=== PATIENT | female | born 1935 | race Caucasian/White ===

== ENCOUNTER 2020-01-16 07:49 | Outpatient (CLI) | payer MEDICARE, OTHER, SELFPAY ==
--- NOTE | 2020-01-16 07:58 | MM_ITS ---
WS: [id number] Bilateral screening digital mammogram, 01/16/2020 Clinical Data: SCREENING Comparison: 11/23/2018, 11/02/2017, 10/22/2016, 10/17/2015, 09/22/2014, 09/12/2013, 09/10/2012, 08/04/2011, 07/18, 07/09/2009, 05/08/2008, 05/03/2007, 04/27/2006. Findings: The breast parenchymal pattern shows fat replacement. No spiculated masses or clustered calcification s are seen. There are no secondary signs of carcinoma. MM/[id number] Impression: 1. Negative bilateral mammogram unchanged. 2. Recommend annual screening mammograms. BIRADS: 1-Negative FOLLOW UP: 1 Year Follow-up The CAD cashier checker was used.
== END 2020-01-16 07:50 | disposition home or self-care (01) ==
LOC: RADSHAW 07:53
PROVIDERS: PCP Nurse Practitioner Family; Visit Provider Nurse Practitioner Family
DX: Z12.31 Encounter for screening mammogram for malignant neoplasm of breast (principal)
CPT/HCPCS: 77067

== ENCOUNTER 2020-11-20 07:39 | Emergency (ER) | payer MEDICARE, OTHER, SELFPAY ==
[2020-11-20 08:20] VITALS: BP 170/111; PULSE 96; RESP 18; TEMP 36.6; O2SAT 96; BMI 33.6
[2020-11-20 08:32] VITALS: BP 194/124; PULSE 84; RESP 13; O2SAT 95
[2020-11-20 08:44] LABS: Basophils % 0.6 %; Eosinophils # 0.1 10^3/uL (0.0-0.8); Eosinophils % 1.7 %; Hematocrit 44.3 % (37.0-47.0); Hemoglobin 14.3 g/dL (11.5-15.3); Lymphocytes # 1.6 10^3/uL (0.8-4.8); Lymphocytes % 30.3 %; Mean Corpuscular HGB Conc 32.3 g/dL (30.0-36.0); Mean Corpuscular Hemoglobin 28.9 pg (28.0-34.0); Mean Corpuscular Volume 89.7 fL (81-99); Mean Platelet Volume 10.2 fL (7.4-10.4); Monocytes # 0.3 10^3/uL (0.2-0.9); Monocytes % 6.4 %; Neutrophils # 3.13 10^3/uL (1.8-7.7); Neutrophils % 60.8 %; Nucleated Red Blood Cells % 0 %; Platelet Count 262 10^3/cmm (130-400); Red Blood Count 4.94 10^6/uL (4.1-5.3); Red Cell Distribution Width 13.9 % (12.1-15.1); White Blood Count 5.2 10^3/uL (4.0-10.0)
--- NOTE | 2020-11-20 08:45 | ED_ITS ---
HPI - Epistaxis General: Chief complaint: Epistaxis Stated complaint: nose bleed Time Seen by Provider: 11/20/20 08:15 History of Present Illness: HPI Narrative: 85-year-old female presents emergency room complaint of epistaxis. Began this morning after she had gone out for a walk. She is on warfarin the last time she had her PTU checked was 3 weeks ago. She is also on multiple antihypertensives which she has not taken this morning due to the bloody nose. 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 MD complaint: epistaxis Location: bilateral nostril Onset (ago): hour(s) Duration: intermittent Context: warfarin use Associated symptoms: Reports no associated symptoms; Deny fever(s) or vomiting Treatment prior to arrival: nose pinching and head tilted back Review of Systems Const: Denies: fever(s), chills, body aches, change in appetite, fatigue or malaise ENMT: Denies: throat pain, ear or mastoid pain, nasal discharge or nasal congestion Card: Denies: chest pain, edema, dyspnea on exertion or orthopnea Resp: Denies: dyspnea, productive cough or non-productive cough GI: Denies: abdominal pain, nausea, vomiting, hematemesis, coffee ground emesis, diarrhea, constipation, bloating, hematochezia or melena : Denies: flank pain, difficulty voiding, dysuria, urinary frequency or urinary urgency Skin/Breast: Denies: rash or pruritus Physical Exam Const: COMMON NORMALS: no acute distress GENERAL APPEARANCE: cooperative and comfortable ORIENTATION/CONSCIOUSNESS: Yes awake, Yes oriented to person, Yes oriented to place and Yes oriented to time HENMT: COMMON NORMALS: normocephalic, atraumatic and hearing grossly normal bilaterally HEAD & SCALP: normocephalic and atraumatic Neck/C-Spine: COMMON NORMALS: no JVD Resp: COMMON NORMALS: normal respiratory effort, No retractions, No use of accessory muscles and clear to auscultation bilaterally AUSCULTATION: clear to auscultation bilaterally Cardio: COMMON NORMALS: no JVD, regular rate, regular rhythm and No murmurs present (Cardio) RATE: regular rate RHYTHM: regular rhythm GI: COMMON NORMALS: Soft to palpation and No hepatosplenomegaly present AUSCULTATION: Yes normoactive bowel sounds PALPATION: Yes Soft to palpation, No Tenderness to palpation present (GI), No Guarding due to palpation present (GI) and Yes No hepatosplenomegaly present Extremity: COMMON NORMALS: normal to inspection, capillary refill normal, no clubbing, cyanosis or edema, no calf tenderness and no pedal edema Neuro: SENSORIUM/ORIENTATION: Yes oriented to person, Yes oriented to place and Yes oriented to time Skin: COMMON NORMALS: no rashes or lesions noted GENERAL SKIN EXAM: no rashes or lesions noted Course Vital Signs: Vital signs: Vital Signs Temperature 97.9 F 11/20/20 08:20 Pulse Rate 75 11/20/20 10:35 Respiratory Rate 14 11/20/20 10:35 Blood Pressure 162/106 11/20/20 10:35 Pulse Oximetry 95 11/20/20 10:35 MDM - Epistaxis MDM Narrative: Medical decision making narrative: Patient had a nose clamp on when I came in the room. We prepared to place a Rhino Rocket however we will remove the nose clip she has longer actively bleeding. Monitor for time she continues to not be actively bleeding. We will discharge her home on Augmentin topical mupirocin place inside the naris. I have her follow-up with her primary care doctor in the next 3 days if any recurrence of epistaxis return to the emergency room. Lab Data: Labs: Lab Results 11/20/20 11/20/20 11/20/20 Range/Units 08:38 08:38 08:38 WBC 5.2 (4.0-10.0) 10^3/ uL RBC 4.94 (4.1-5.3) 10^6/u L Hgb 14.3 (11.5-15.3) g/dL Hct 44.3 (37.0-47.0) % MCV 89.7 (81-99) fL MCH 28.9 (28.0-34.0) pg MCHC 32.3 (30.0-36.0) g/dL RDW 13.9 (12.1-15.1) % Plt Count 262 (130-400) 10^3/c mm MPV 10.2 (7.4-10.4) fL Neut % (Auto) 60.8 % Lymph % (Auto) 30.3 % Osborne % (Auto) 6.4 % Eos % (Auto) 1.7 % Baso % (Auto) 0.6 % Neut # (Auto) 3.13 (1.8-7.7) 10^3/u L Lymph # (Auto) 1.6 (0.8-4.8) 10^3/u L Osborne # (Auto) 0.3 (0.2-0.9) 10^3/u L Eos # (Auto) 0.1 (0.0-0.8) 10^3/u L Baso # (Auto) 0.0 (0.0-0.1) 10^3/u L Nucleated RBC % (a uto) 0 % Nucleated RBCs # 0.0 /100WBC PT 22.00 H (12.1-14.9) SECO NDS INR 1.87 H (0.8-1.2) APTT 33.3 (23.9-36.7) SECO NDS Sodium 136 (136-145) mmol/L Potassium 3.5 (3.5-5.1) mmol/L Chloride 100 (98-107) mmol/L Carbon Dioxide 24 (22-29) mmol/L Anion Gap 15.5 (5-19) BUN 9 (8-23) mg/dL Creatinine 0.6 (0.5-0.9) mg/dL GFR Calculation Not Reportable Glucose 101 (65-115) mg/dL Calculated Osmolal ity 281 L (285-295) mOsm/k g Calcium 8.1 L (8.5-10.5) mg/dL Total Bilirubin 0.7 (0.15-1.2) mg/dL AST 18 (0-32) U/L ALT 14 (0-33) U/L Alkaline Phosphata se 61 (35-105) IU/L Total Protein 7.7 (6.6-8.7) g/dL Albumin 3.8 (3.5-5.2) g/dL Globulin 3.9 (1.3-4.6) g/dL Discharge Plan Discharge Patient Disposition: Home Clinical Impression: Epistaxis, Hypertension, On continuous oral anticoagulation, History of DVT of lower extremity Condition: Stable Prescriptions: New Augmentin 875-125 mg tablet 1 tab PO BID Qty: 10 RF: 0 No Action multivitamin Tablet 1 tab PO DAILY RF: 0 metoprolol succinate 200 mg tablet extended release 24 hr 200 mg PO DAILY RF: 0 Tylenol Extra Strength 500 mg Tablet 500 mg PO PRN RF: 0 warfarin 3 mg tablet 3 mg PO DAILY RF: 0 levothyroxine 88 mcg tablet 88 mcg PO QAM RF: 0 amlodipine-benazepril 5-20 mg capsule 1 cap PO DAILY RF: 0 omeprazole 20 mg capsule,delayed release(DR/EC) 20 mg PO DAILY PRN (Reason: Acid Reflux) RF: 0 warfarin 1 mg tablet 1 mg PO .ON MON,THU,FRI RF: 0 rosuvastatin 5 mg tablet 5 mg PO BEDTIME RF: 0 melatonin 10 mg Tablet 10 mg PO BEDTIME RF: 0 Discharge Orders: Discharge ED (Routine); Ordered 11/20/20 Ordered By: Winston Morales Referrals: Keren Torres FNP [Primary Care Provider] - Discharge Diet: Usual diet Discharge Activity: Resume usual activity Patient Instructions: Opioid Safety Activity Restrictions/Additional Instructions: Continue current medications. Follow-up with your doctor within the next week to recheck an INR. Return if you have recurrent bleeding Coding Level of Care Code ED Gang Hemstitching Machine Operator for Josué Pardo
--- NOTE | 2020-11-20 08:50 | PC.NURSE ---
Blood Pressure Patient's BP was elevated. This nurse adjusted BP cuff and advised the patient to relax her arm for a retake. The patient's BP improved slightly from 194/124 to 179/123 with this intervention.
[2020-11-20 09:00] LABS: INR 1.87 (0.8-1.2); Partial Thromboplastin Time 33.3 SECONDS (23.9-36.7)
[2020-11-20 09:06] LABS: Alanine Aminotransferase 14 U/L (0-33); Albumin Level 3.8 g/dL (3.5-5.2); Alkaline Phosphatase 61 IU/L (35-105); Anion Gap 15.5 (5-19); Aspartate Amino Transferase 18 U/L (0-32); Blood Urea Nitrogen 9 mg/dL (8-23); Calcium 8.1 mg/dL (8.5-10.5); Carbon Dioxide 24 mmol/L (22-29); Chloride 100 mmol/L (98-107); Globulin 3.9 g/dL (1.3-4.6); Glucose 101 mg/dL (65-115); Osmolality Calculated 281 mOsm/kg (285-295); Potassium 3.5 mmol/L (3.5-5.1); Sodium 136 mmol/L (136-145); Total Bilirubin 0.7 mg/dL (0.15-1.2); Total Protein 7.7 g/dL (6.6-8.7)
[2020-11-20] MEDS: saline nasal spray 44mL Btl 1 SPRAY NASAL (09:24)
[2020-11-20] MEDS: oxymetazoline 0.05% Nasal Spray 15 mL 2 SPRAY NOSTRIL-B (09:24)
[2020-11-20 09:25] VITALS: BP 159/98; PULSE 96; RESP 14; O2SAT 94
[2020-11-20] MEDS: metoprolol succinate ER (24 HR) 100 mg Tablet 200 MG PO (10:09)
[2020-11-20] MEDS: amlodipine 5 mg Tablet PO (10:10)
[2020-11-20] MEDS: lisinopril 20 mg Tablet PO (10:10)
[2020-11-20 10:11] VITALS: BP 169/93; PULSE 104; RESP 15; O2SAT 93
[2020-11-20 10:35] VITALS: BP 162/106; PULSE 75; RESP 14; O2SAT 95
== END 2020-11-20 10:42 | disposition home or self-care (01) ==
PROVIDERS: Emergency Provider Family Medicine; PCP Nurse Practitioner Family
DX: R04.0 Epistaxis (principal); I10 Essential (primary) hypertension; Z79.01 Long term (current) use of anticoagulants; Z86.718 Personal history of other venous thrombosis and embolism
CPT/HCPCS: 80053; 85025; 85610; 85730; 99284

== ENCOUNTER 2020-11-21 22:21 | Emergency (ER) | payer MEDICARE, OTHER, SELFPAY ==
[2020-11-21 22:30] VITALS: BP 157/107; PULSE 109; RESP 22; TEMP 36.6; O2SAT 93; BMI 33.6
--- NOTE | 2020-11-21 23:04 | ED_ITS ---
HPI - Epistaxis General: Chief complaint: Epistaxis Stated complaint: Nose Bleed Time Seen by Provider: 11/21/20 23:04 History of Present Illness: HPI Narrative: 85-year-old female comes in today with complaints of nosebleed. Patient reports a large clot came out when she arrived to the ER. Bleeding since then has decreased. Patient had followed up with primary care from a nosebleed 2 days ago. Patient is alert and oriented. Patient appears well. Patient appears in no acute distress. Review of Systems General: Reports: 10 or more systems reviewed and unremarkable except in HPI and below ENMT: Reports: epistaxis Physical Exam Const: COMMON NORMALS: no acute distress and patient oriented x3 GENERAL APPEARANCE: cooperative HENMT: COMMON NORMALS: normocephalic HEAD & SCALP: normal to inspection and normocephalic NOSE: Epistaxis present on the right source not visualized MOUTH: Normal oral and palatal mucosa present THROAT: postnasal drainage (bloody drainage, no clot) Eye: GENERAL EYE: appearance normal, both eyes and all related structures Neck/C-Spine: COMMON NORMALS: full ROM Lymph: LYMPHATIC: no lymphadenopathy noted Chest: COMMONS NORMALS: normal inspection of the chest Resp: COMMON NORMALS: normal respiratory effort EFFORT & INSPECTION: Yes able to speak in complete sentences Cardio: COMMON NORMALS: regular rate and regular rhythm RATE: regular rate RHYTHM: regular rhythm GI: COMMON NORMALS: non-tender Back/Pelvis: COMMON NORMALS: thoracic and lumbar spine normal to inspection Extremity: COMMON NORMALS: normal to inspection Neuro: COMMON NORMALS: patient oriented x3 and moves all extremities Psych: COMMON NORMALS: mental status grossly normal and cooperative Skin: COMMON NORMALS: no rashes or lesions noted GENERAL SKIN EXAM: no rashes or lesions noted Procedures Epistaxis Control Nostril: right Nose Prepped With: oxymetazoline Direct Inspection: unable to visualize Clots Removed by: manually Cautery Used: none Device Inserted: nasal tampon (2x2 saturated pledget with lidocaine and epinephr ine) Patient Tolerated Procedure: well Course Vital Signs: Vital signs: Vital Signs Temperature 97.8 F 11/21/20 22:30 Pulse Rate 84 11/22/20 01:26 Respiratory Rate 16 11/22/20 01:26 Blood Pressure 147/90 11/22/20 01:26 Pulse Oximetry 92 11/22/20 01:26 MDM - Epistaxis MDM Narrative: Medical decision making narrative: Patient came in today with recurrent epistaxis. On exam patient is alert oriented and appears well. Respirations were even lungs were clear to auscultation. Skin was warm and dry. Nasal passage on the right side noted blood in the canal. Posterior pharynx had some bleeding. Differential diagnosis includes anemia, epistaxis, sinusitis. I was able to get control of the epistaxis with a lidocaine and epinephrine saturated pledget. Pledget was left in place with recommendations for removal in 2 days. Patient at this time is already on Augmentin due to previous exam and treatment for epistaxis. Case management referral will be placed for follow-up appointment with ENT. Patient should return to the ER in 2 days for nasal packing removal. Lab Data: Labs: Lab Results 11/21/20 11/21/20 11/21/20 Range/Units 22:55 22:55 22:55 WBC 5.3 (4.0-10.0) 10^3/ uL RBC 4.65 (4.1-5.3) 10^6/u L Hgb 13.5 (11.5-15.3) g/dL Hct 41.7 (37.0-47.0) % MCV 89.7 (81-99) fL MCH 29.0 (28.0-34.0) pg MCHC 32.4 (30.0-36.0) g/dL RDW 14.1 (12.1-15.1) % Plt Count 266 (130-400) 10^3/c mm MPV 10.2 (7.4-10.4) fL Neut % (Auto) 49.1 % Lymph % (Auto) 41.3 % Wright % (Auto) 6.3 % Eos % (Auto) 2.5 % Baso % (Auto) 0.6 % Neut # (Auto) 2.59 (1.8-7.7) 10^3/u L Lymph # (Auto) 2.2 (0.8-4.8) 10^3/u L Wright # (Auto) 0.3 (0.2-0.9) 10^3/u L Eos # (Auto) 0.1 (0.0-0.8) 10^3/u L Baso # (Auto) 0.0 (0.0-0.1) 10^3/u L Nucleated RBC % (a uto) 0 % Nucleated RBCs # 0.0 /100WBC PT 22.60 H (12.1-14.9) SECO NDS INR 1.95 H (0.8-1.2) Sodium 138 (136-145) mmol/L Potassium 3.5 (3.5-5.1) mmol/L Chloride 104 (98-107) mmol/L Carbon Dioxide 24 (22-29) mmol/L Anion Gap 13.5 (5-19) BUN 17 (8-23) mg/dL Creatinine 0.5 (0.5-0.9) mg/dL GFR Calculation Not Reportable Glucose 117 H (65-115) mg/dL Calculated Osmolal ity 289 (285-295) mOsm/k g Calcium 8.8 (8.5-10.5) mg/dL Total Bilirubin 0.6 (0.15-1.2) mg/dL AST 17 (0-32) U/L ALT 16 (0-33) U/L Alkaline Phosphata se 58 (35-105) IU/L Total Protein 7.3 (6.6-8.7) g/dL Albumin 3.8 (3.5-5.2) g/dL Globulin 3.5 (1.3-4.6) g/dL Discharge Plan Discharge Patient Disposition: Home Clinical Impression: Epistaxis Condition: Stable Prescriptions: No Action multivitamin Tablet 1 tab PO DAILY RF: 0 metoprolol succinate 200 mg tablet extended release 24 hr 200 mg PO DAILY RF: 0 Tylenol Extra Strength 500 mg Tablet 500 mg PO PRN RF: 0 warfarin 3 mg tablet 3 mg PO DAILY RF: 0 levothyroxine 88 mcg tablet 88 mcg PO QAM RF: 0 amlodipine-benazepril 5-20 mg capsule 1 cap PO DAILY RF: 0 omeprazole 20 mg capsule,delayed release(DR/EC) 20 mg PO DAILY PRN (Reason: Acid Reflux) RF: 0 warfarin 1 mg tablet 1 mg PO .ON MON,WED,FRI RF: 0 rosuvastatin 5 mg tablet 5 mg PO BEDTIME RF: 0 melatonin 10 mg Tablet 10 mg PO BEDTIME RF: 0 Augmentin 875-125 mg tablet 1 tab PO BID Qty: 10 RF: 0 mupirocin 2 % ointment 1 applic topical BID 7 Days Qty: 22 RF: 0 Discharge Orders: Discharge ED (Routine); Ordered 11/22/20 Ordered By: Chicho Mcelroy Referrals: Keren Torres FNP [Primary Care Provider] - Discharge Diet: Usual diet Discharge Activity: Increase activity as tolerated Patient Instructions: Epistaxis (ED), Opioid Safety Activity Restrictions/Additional Instructions: Home and rest. Drink plenty of fluids. Continue with antibiotic as directed. If packing comes out leave it out. If in 2 days the packing is still in place it needs to be removed. You can return to the ER to have it removed. Monitor for fever. Case management will call you tomorrow regarding a follow-up appointment with artificial pearl maker. Return to the emergency room as needed. Coding Level of Care Code ED Tannery Worker for Josué Pardo Exam Comprehensive
[2020-11-21 23:07] LABS: Basophils % 0.6 %; Eosinophils # 0.1 10^3/uL (0.0-0.8); Eosinophils % 2.5 %; Hematocrit 41.7 % (37.0-47.0); Hemoglobin 13.5 g/dL (11.5-15.3); Lymphocytes # 2.2 10^3/uL (0.8-4.8); Lymphocytes % 41.3 %; Mean Corpuscular HGB Conc 32.4 g/dL (30.0-36.0); Mean Corpuscular Volume 89.7 fL (81-99); Mean Platelet Volume 10.2 fL (7.4-10.4); Monocytes # 0.3 10^3/uL (0.2-0.9); Monocytes % 6.3 %; Neutrophils # 2.59 10^3/uL (1.8-7.7); Neutrophils % 49.1 %; Nucleated Red Blood Cells % 0 %; Platelet Count 266 10^3/cmm (130-400); Red Blood Count 4.65 10^6/uL (4.1-5.3); Red Cell Distribution Width 14.1 % (12.1-15.1); White Blood Count 5.3 10^3/uL (4.0-10.0)
[2020-11-21 23:19] LABS: INR 1.95 (0.8-1.2)
[2020-11-21] MEDS: oxymetazoline 0.05% Nasal Spray 15 mL 2 SPRAY NOSTRIL-B (23:23)
[2020-11-21 23:28] LABS: Alanine Aminotransferase 16 U/L (0-33); Albumin Level 3.8 g/dL (3.5-5.2); Alkaline Phosphatase 58 IU/L (35-105); Anion Gap 13.5 (5-19); Aspartate Amino Transferase 17 U/L (0-32); Blood Urea Nitrogen 17 mg/dL (8-23); Calcium 8.8 mg/dL (8.5-10.5); Carbon Dioxide 24 mmol/L (22-29); Chloride 104 mmol/L (98-107); Globulin 3.5 g/dL (1.3-4.6); Glucose 117 mg/dL (65-115); Osmolality Calculated 289 mOsm/kg (285-295); Potassium 3.5 mmol/L (3.5-5.1); Sodium 138 mmol/L (136-145); Total Bilirubin 0.6 mg/dL (0.15-1.2); Total Protein 7.3 g/dL (6.6-8.7)
[2020-11-21 23:32] VITALS: BP 134/88; PULSE 89; RESP 16; O2SAT 95
--- NOTE | 2020-11-22 00:27 | PC.NURSE ---
report to Louise SOLIS
[2020-11-22 01:26] VITALS: BP 147/90; PULSE 84; RESP 16; O2SAT 92
--- NOTE | 2020-11-26 09:24 | DCPLANNER ---
garage manager had message to schedule a follow up appointment for patient with ENT for epistaxis. garage manager emailed patients information to Nita Quevedo and Ivonne at [facility] ENT clinic. Patients information will be printed and reviewed. Clinic will call patient with appointment information.
--- NOTE | 2020-11-27 15:24 | DCPLANNER ---
Patient had a follow up appointment scheduled with [facility] ENT - patient did attend appointment.
== END 2020-11-22 01:31 | disposition home or self-care (01) ==
PROVIDERS: Emergency Provider Nurse Practitioner Family; PCP Nurse Practitioner Family
DX: R04.0 Epistaxis (principal); Z79.01 Long term (current) use of anticoagulants
CPT/HCPCS: 30901; 30905; 80053; 85025; 85610; 99283

== ENCOUNTER 2020-11-24 17:18 | Emergency (ER) | payer MEDICARE, OTHER, SELFPAY ==
[2020-11-24 17:30] VITALS: BP 162/109; PULSE 90; RESP 18; O2SAT 95
[2020-11-24 17:57] VITALS: BP 158/106; PULSE 90; RESP 18; O2SAT 97
[2020-11-24 18:04] VITALS: BP 157/103; RESP 18
--- NOTE | 2020-11-24 18:18 | W.ED.EPISTAX ---
Documented by User: SUE Ramirez 11/25/20 01:26 HPI - Epistaxis General: Chief complaint: Epistaxis Stated complaint: nose bleed Time Seen by Provider: 11/24/20 18:04 History of Present Illness: HPI Narrative: Patient is a 85-year-old female comes to the ED with nosebleed. Patient is currently on warfarin. Denies any injury or trauma to the face causing bleeding and says it occurred just randomly while she was sitting down. Patient was first seen here in the ED on November 20 for same complaint. She then came back to the ED on November 21 with a reoccurring nosebleed and the provider placed some packing in patient's nose and had her referred to ear nose and throat doctor. She saw Dr. Delcid the shearer helper on November 22 and he told her to leave the packing in through the weekend and he will see the patient on Thursday, November 26 to have packing removed and possible cauterization if needed. He also told her to stop taking her warfarin and she has not taking it in a couple days now and she is currently on a prescription for Augmentin. Patient says the bleeding has continued and now she says some bleeding and clots have went down her throat she has coughed them up. Associated symptoms: Deny fever(s), headache(s) or vomiting Review of Systems Const: Denies: fever(s), chills or fatigue Eyes: Denies: change in vision or eye discomfort ENMT: Reports: epistaxis; Denies: throat pain, odynophagia, nasal discharge or nasal congestion Card: Denies: chest pain, palpitations, edema, swelling of feet/ankles, dyspnea on exertion or orthopnea Resp: Denies: dyspnea, productive cough or non-productive cough GI: Denies: abdominal pain, nausea, vomiting, diarrhea, constipation or hematochezia : Denies: flank pain, dysuria or hematuria Musc: Denies: neck pain, back pain or extremity swelling Skin/Breast: Denies: rash or new lesions Neuro: Denies: headache(s), numbness in extremities or weakness in extremities Physical Exam Const: COMMON NORMALS: no acute distress, patient oriented x3 and alert GENERAL APPEARANCE: cooperative and comfortable HENMT: COMMON NORMALS: normocephalic HEAD & SCALP: normocephalic NOSE: Normal septum present (No septal hematoma noted.) and Epistaxis present on the right anterior source (Bleeding appears to be on the septum), dried blood present and clots present MOUTH: Normal oral and palatal mucosa present THROAT: posterior oropharynx normal and uvula midline Neck/C-Spine: COMMON NORMALS: supple GENERAL: Yes normal visual inspection Resp: COMMON NORMALS: normal respiratory effort, No retractions, No use of accessory muscles and clear to auscultation bilaterally AUSCULTATION: clear to auscultation bilaterally Cardio: COMMON NORMALS: regular rate, regular rhythm, S1 normal heart sound present, S2 normal heart sound present, No gallops present (Cardio), No clicks present (Cardio), No murmurs present (Cardio) and Peripheral pulses 2+ throughout RATE: regular rate RHYTHM: regular rhythm HEART SOUNDS: S1 normal heart sound present and S2 normal heart sound present PERIPHERAL PULSES: Peripheral pulses 2+ throughout GI: COMMON NORMALS: Normal to inspection, nondistended, normoactive bowel sounds present, Soft to palpation, non-tender and no masses PALPATION: Yes Soft to palpation : COMMON NORMALS: Yes no CVA tenderness BLADDER/KIDNEY EXAM: Yes no CVA tenderness Back/Pelvis: COMMON NORMALS: no CVA tenderness Extremity: COMMON NORMALS: normal to inspection Neuro: COMMON NORMALS: patient oriented x3 and moves all extremities SENSORIUM/ORIENTATION: Yes alert Skin: GENERAL SKIN EXAM: dry skin Procedures Epistaxis Control Time Out Performed: Yes Nostril: right Nose Prepped With: oxymetazoline and other (urojet to help with insertion of nasal tampon/rhino rocket) Direct Inspection: anterior source identified Clots Removed by: blowing nose Device Inserted: nasal tampon (Dr. Romero assisted mo in inserting nasal tampon) Device Size: 6 (approximately 6cm in length) Patient Tolerated Procedure: well Course Vital Signs: Vital signs: Vital Signs Pulse Rate 90 11/24/20 17:57 Respiratory Rate 18 11/24/20 18:04 Blood Pressure 157/103 11/24/20 18:04 Pulse Oximetry 97 11/24/20 17:57 MDM - Epistaxis MDM Narrative: Medical decision making narrative: Patient is an 85-year-old female comes to the ED with epistaxis. Denies any injury or trauma to cause nosebleed and it started on November 20. This is patient's third visit to the ED for same complaint. She had nasal packing inserted on November 21 and then she saw Dr. Delcid on November 22 and he told her to keep the nasal packing in through the weekend and he will see patient on Thursday to reevaluate. He also told patient to stop taking warfarin until he sees patient on Thursday. Patient still having some bleeding and is also having some blood clots. Patient appears in no acute distress or pain. CBC was unremarkable and patient's INR was 1.34 and it was 1.95 on November 21. Nasal packing was removed patient had minimal bleeding still. Nasal Afrin was used and then patient blew her nose to blood clots. I then had Dr. Romero assist with me in inserting a nasal rocket using urojet as lubricant. Patient tolerated procedure well. She was then discharged home and told to follow-up with ENT at her scheduled appointment on Thursday, November 26. Return to ED precautions given. Patient understood and agree with plan. Lab Data: Attestation: I reviewed the patient's lab results. Labs: Lab Results 11/24/20 11/24/20 Range/Units 18:18 18:18 WBC 5.5 (4.0-10.0) 10^3/ uL RBC 4.40 (4.1-5.3) 10^6/u L Hgb 12.9 (11.5-15.3) g/dL Hct 38.9 (37.0-47.0) % MCV 88.4 (81-99) fl MCH 29.3 (28.0-34.0) pg MCHC 33.2 (30.0-36.0) g/dL RDW 13.8 (12.1-15.1) % Plt Count 263 (130-400) 10^3/c mm MPV 10.2 (7.4-10.4) fL Neut % (Auto) 52.2 % Lymph % (Auto) 37.5 % [place] % (Auto) 6.6 % Eos % (Auto) 3.1 % Baso % (Auto) 0.4 % Neut # (Auto) 2.85 (1.8-7.7) 10^3/u L Lymph # (Auto) 2.1 (0.8-4.8) 10^3/u L [place] # (Auto) 0.4 (0.2-0.9) 10^3/u L Eos # (Auto) 0.2 (0.0-0.8) 10^3/u L Baso # (Auto) 0.0 (0.0-0.1) 10^3/u L Nucleated RBC % (a uto) 0 % Nucleated RBCs # 0.0 /100WBC PT 17.00 H (12.1-14.9) SECO NDS INR 1.34 H (0.8-1.2) Discharge Plan Discharge Patient Disposition: Home Clinical Impression: Epistaxis, Recurrent epistaxis Condition: Stable Prescriptions: No Action multivitamin Tablet 1 tab PO DAILY RF: 0 metoprolol succinate 200 mg tablet extended release 24 hr 200 mg PO DAILY RF: 0 Tylenol Extra Strength 500 mg Tablet 500 mg PO PRN RF: 0 warfarin 3 mg tablet 3 mg PO DAILY RF: 0 levothyroxine 88 mcg tablet 88 mcg PO QAM RF: 0 amlodipine-benazepril 5-20 mg capsule 1 cap PO DAILY RF: 0 omeprazole 20 mg capsule,delayed release(DR/EC) 20 mg PO DAILY PRN (Reason: Acid Reflux) RF: 0 warfarin 1 mg tablet 1 mg PO .ON THU,THU,THU RF: 0 rosuvastatin 5 mg tablet 5 mg PO BEDTIME RF: 0 melatonin 10 mg Tablet 10 mg PO BEDTIME RF: 0 Discharge Orders: Discharge ED (Routine); Ordered 11/24/20 Ordered By: Serg Fox Referrals: Keren Torres FNP [Primary Care Provider] - Discharge Diet: Regular Discharge Activity: Resume usual activity Patient Instructions: Epistaxis (ED) Activity Restrictions/Additional Instructions: Follow-up with your nose and throat doctor at your scheduled appointment on Thursday, November 26. Leave packing in until you see the ENT on Thursday. Return to the ER or your medical provider if condition worsens. Please read and understand discharge instructions. Thank you for choosing [facility] for your healthcare needs today. Please realize this is an emergency room and that we are providing you with a medical screening exam and this may not be complete and all inclusive of all the testing and or work up that you may need to determine your ailment or severity of your illness. It is very important that you follow up as instructed or that you return to the Emergency Department should you have concerns or if your condition changes or worsens in any way. Coding Level of Care Code ED Emergency Services Director for Chg Fwd Exam Comprehensive Documented by User: Edy Romero MD, [facility] [place] 12/06/20 12:12 HPI - Epistaxis General: Chief complaint: Epistaxis Stated complaint: nose bleed Time Seen by Provider: 11/24/20 18:04 Course Vital Signs: Vital signs: Vital Signs Pulse Rate 90 11/24/20 17:57 Respiratory Rate 18 11/24/20 18:04 Blood Pressure 157/103 11/24/20 18:04 Pulse Oximetry 97 11/24/20 17:57 MDM - Epistaxis MDM Narrative: Medical decision making narrative: Kindly review the mid level provider's note for complete history and examination. I agree with his clinical findings. This pleasant 85-year-old female is presenting to the emergency department with recurrent epistaxis. She had seen the ENT provider and had a packing done but patient is still having breakthrough bleeding. I assisted the nurse practitioner in placing a Rhino Rocket up right nostril and inflating. She was observed after these and no further bleeding was noted. She is discharged home to follow-up with the ENT surgeon. Patient voiced understanding and is in agreement with the plan. Medical Records: Attestation: I reviewed the patient's medical records. Lab Data: Attestation: I reviewed the patient's lab results. Labs: Lab Results 11/24/20 11/24/20 Range/Units 18:18 18:18 WBC 5.5 (4.0-10.0) 10^3/ uL RBC 4.40 (4.1-5.3) 10^6/u L Hgb 12.9 (11.5-15.3) g/dL Hct 38.9 (37.0-47.0) % MCV 88.4 (81-99) fl MCH 29.3 (28.0-34.0) pg MCHC 33.2 (30.0-36.0) g/dL RDW 13.8 (12.1-15.1) % Plt Count 263 (130-400) 10^3/c mm MPV 10.2 (7.4-10.4) fL Neut % (Auto) 52.2 % Lymph % (Auto) 37.5 % [place] % (Auto) 6.6 % Eos % (Auto) 3.1 % Baso % (Auto) 0.4 % Neut # (Auto) 2.85 (1.8-7.7) 10^3/u L Lymph # (Auto) 2.1 (0.8-4.8) 10^3/u L [place] # (Auto) 0.4 (0.2-0.9) 10^3/u L Eos # (Auto) 0.2 (0.0-0.8) 10^3/u L Baso # (Auto) 0.0 (0.0-0.1) 10^3/u L Nucleated RBC % (a uto) 0 % Nucleated RBCs # 0.0 /100WBC PT 17.00 H (12.1-14.9) SECO NDS INR 1.34 H (0.8-1.2) Discharge Plan Discharge Patient Disposition: Home Clinical Impression: Epistaxis, Recurrent epistaxis Condition: Stable Prescriptions: No Action multivitamin Tablet 1 tab PO DAILY RF: 0 metoprolol succinate 200 mg tablet extended release 24 hr 200 mg PO DAILY RF: 0 Tylenol Extra Strength 500 mg Tablet 500 mg PO PRN RF: 0 warfarin 3 mg tablet 3 mg PO DAILY RF: 0 levothyroxine 88 mcg tablet 88 mcg PO QAM RF: 0 amlodipine-benazepril 5-20 mg capsule 1 cap PO DAILY RF: 0 omeprazole 20 mg capsule,delayed release(DR/EC) 20 mg PO DAILY PRN (Reason: Acid Reflux) RF: 0 warfarin 1 mg tablet 1 mg PO .ON MON,WED,FRI RF: 0 rosuvastatin 5 mg tablet 5 mg PO BEDTIME RF: 0 melatonin 10 mg Tablet 10 mg PO BEDTIME RF: 0 Discharge Orders: Discharge ED (Routine); Ordered 11/24/20 Ordered By: Serg Fox Referrals: Keren Torres FNP [Primary Care Provider] - Discharge Diet: Regular Discharge Activity: Resume usual activity Patient Instructions: Epistaxis (ED) Activity Restrictions/Additional Instructions: Follow-up with your nose and throat doctor at your scheduled appointment on November 26. Leave packing in until you see the ENT on Thursday. Return to the ER or your medical provider if condition worsens. Please read and understand discharge instructions. Thank you for choosing [facility] for your healthcare needs today. Please realize this is an emergency room and that we are providing you with a medical screening exam and this may not be complete and all inclusive of all the testing and or work up that you may need to determine your ailment or severity of your illness. It is very important that you follow up as instructed or that you return to the Emergency Department should you have concerns or if your condition changes or worsens in any way. Coding Level of Care Code ED Emergency Services Director for Josué Pardo Exam Comprehensive
[2020-11-24 18:23] LABS: Basophils % 0.4 %; Eosinophils # 0.2 10^3/uL (0.0-0.8); Eosinophils % 3.1 %; Hematocrit 38.9 % (37.0-47.0); Hemoglobin 12.9 g/dL (11.5-15.3); Lymphocytes # 2.1 10^3/uL (0.8-4.8); Lymphocytes % 37.5 %; Mean Corpuscular HGB Conc 33.2 g/dL (30.0-36.0); Mean Corpuscular Hemoglobin 29.3 pg (28.0-34.0); Mean Corpuscular Volume 88.4 fl (81-99); Mean Platelet Volume 10.2 fL (7.4-10.4); Monocytes # 0.4 10^3/uL (0.2-0.9); Monocytes % 6.6 %; Neutrophils # 2.85 10^3/uL (1.8-7.7); Neutrophils % 52.2 %; Nucleated Red Blood Cells % 0 %; Platelet Count 263 10^3/cmm (130-400); Red Cell Distribution Width 13.8 % (12.1-15.1); White Blood Count 5.5 10^3/uL (4.0-10.0)
[2020-11-24 18:36] LABS: INR 1.34 (0.8-1.2)
[2020-11-24] MEDS: oxymetazoline 0.05% Nasal Spray 15 mL 2 SPRAY NOSTRIL-B (19:33)
[2020-11-24] MEDS: lidocaine 2% Urojet 20 mL TOPICAL (19:33)
== END 2020-11-24 19:34 | disposition home or self-care (01) ==
PROVIDERS: Emergency Provider Physician Assistant; PCP Nurse Practitioner Family
DX: R04.0 Epistaxis (principal); Z79.01 Long term (current) use of anticoagulants
CPT/HCPCS: 30901; 85025; 85610; 99283

== ENCOUNTER 2021-04-26 08:56 | Outpatient (CLI) | payer MEDICARE, OTHER, SELFPAY ==
--- NOTE | 2021-04-26 09:30 | MM_ITS ---
WS: [id number] BILATERAL SCREENING DIGITAL MAMMOGRAM WITH CAD HISTORY: SCREENING COMPARISON: 01/16/2020, 11/23/2018 Bilateral CC and MLO views submitted. Computer aided detection analyzed. Breast composition: There are scattered areas of fibroglandular density. No suspicious masses, microc alcifications or architectural distortion. Stable appearance of both breasts since the prior study. MM/[id number] IMPRESSION: BI-RADS: 2-Benign FOLLOW UP: 1 Year Follow-up
== END 2021-04-26 08:57 | disposition home or self-care (01) ==
LOC: RADSHAW 09:01
PROVIDERS: PCP Nurse Practitioner Family; Visit Provider Nurse Practitioner Family
DX: Z12.31 Encounter for screening mammogram for malignant neoplasm of breast (principal)
CPT/HCPCS: 77067

== ENCOUNTER 2022-06-16 10:15 | Outpatient (CLI) | payer MEDICARE, SELFPAY ==
--- NOTE | 2022-06-16 10:27 | MM_ITS ---
WS: [id number] BILATERAL SCREENING DIGITAL TOMOSYNTHESIS MAMMOGRAM WITH CAD HISTORY: SCREENING COMPARISON: 04/26/2021, 01/16/2020 and 11/23/2018 Bilateral CC and MLO views with tomosynthesis and synthetic mammography submitted. Computer aided det ection analyzed. Breast composition: There are scattered areas of fibroglandular density. No suspicious masses, microc alcifications or architectural distortion. Benign stable nodule measures 5 mm LEFT breast near 3:00. MM/[id number] IMPRESSION: BI-RADS: 2-Benign FOLLOW UP: 1 Year Follow-up
== END 2022-06-16 10:16 | disposition home or self-care (01) ==
PROVIDERS: PCP Nurse Practitioner Family; Visit Provider Nurse Practitioner Family
DX: Z12.31 Encounter for screening mammogram for malignant neoplasm of breast (principal)
CPT/HCPCS: 77063; 77067